=== PATIENT | male | born 1960 | race Caucasian/White ===

== ENCOUNTER → 2023-01-09 | Outpatient (CLI) | payer BC ==
--- NOTE | 2023-01-10 18:30 | CT ---
EXAMINATION TYPE: CT pelvis wo con DATE OF EXAM: 01/09/2023 COMPARISON: INDICATION: Scrotal swelling x 2 months DLP: 246.0 mGycm, Automated exposure control for dose reduction was used. CONTRAST: 0 mL of Isovue 300. Study performed with Oral Contrast TECHNIQUE: Axial images were obtained from above the iliac crest to the pubic rami in the axial plane at 5 mm thick sections. Reconstructed images are reviewed on the computer in the coronal plane. FINDINGS: CT PELVIS: Loops of bowel within the abdomen and pelvis are normal. There are loops of bowel which are incom pletely distended or lack oral contrast limiting their evaluation. Fecal debris is within the colon. Appendix: Normal as visualized. Urinary bladder: Normal. Genitourinary structures: Prostate is prominent. Osseous structures: No suspicious lytic or sclerotic lesions. No free fluid is within the pelvis. Right inguinal region and proximal scrotal sac has a large right hydrocele. IMPRESSION: 1. Large right hydrocele. 2. Mild diverticulosis without acute diverticulitis.
== END | disposition home or self-care (01) ==
LOC: RADCTMAIN 14:42
PROVIDERS: ATTEND Urology
DX: N50.89 Other specified disorders of the male genital organs (principal); N43.3 Hydrocele, unspecified; K57.30 Diverticulosis of large intestine without perforation or abscess without bleeding
CPT/HCPCS: 72192

== ENCOUNTER → 2023-11-06 | Outpatient (CLI) | payer BC ==
--- NOTE | 2023-11-06 14:47 | CT ---
EXAMINATION TYPE: CT neck chest w con DATE OF EXAM: 11/06/2023 COMPARISON: None HISTORY: right neck swelling x4 weeks CT DLP: 679.2 mGycm CONTRAST: CT scan of the neck is performed with IV Contrast, patient injected with 100 mL of Isovue 300. Contrast enhanced CT of the neck was performed from the skull base through the lung apices. AIRWAY: The supraglottic, glottic, and subglottic portions of the airway appear patent and free of mass. SALIVARY GLANDS: There is enlargement of the right submandibular gland relative to its left-sided cou nterpart. The right submandibular gland measures 3.3 x 2.5 cm versus 3.3 x 1.7 cm. Distinct lesion is not appreciated with certainty. The parotid glands appear symmetric and free of distinct lesion. THYROID GLAND: No nodules or masses seen. LYMPH NODES: No adenopathy seen greater than 1cm. LUNG APICES: No nodule or mass is seen. OTHER: Vascular structures are patent. No significant degenerative change of the cervical spine. N o abscess seen. IMPRESSION: 1. Enlargement of the right submandibular gland without definite inflammatory change. Central calcifi cation noted compatible with sialolithiasis measuring 4 mm. EXAMINATION TYPE: CT neck chest w con DATE OF EXAM: 11/06/2023 COMPARISON: None HISTORY: right neck swelling x4 weeks CT DLP: 679.2 mGycm Automated exposure control for dose reduction was used. CONTRAST: CT scan of the chest is performed with IV Contrast, patient injected with 100 mL of Isovue 300. FINDINGS: LUNGS: The lungs are grossly clear, there is no concerning parenchymal mass or nodule identified. T here is no pleural effusion or pneumothorax seen. The tracheobronchial tree is patent. MEDIASTINUM: There are no greater than 1 cm hilar or mediastinal lymph nodes. No pericardial effusi on is seen. Thoracic aorta is of normal caliber. The heart is not enlarged. 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 Additional partially imaged smaller lesion at the level of the gallbladder anteriorly. Dedicated CT of the liver is recommended utilizin g hemangioma protocol. OTHER: No additional significant abnormality is seen. IMPRESSION: 1 ascending thoracic aortic aneurysm of 4.2 cm AP dimension. Descending thoracic aorta is of normal c aliber. 2. 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 Additional partially imaged smaller lesion at th e level of the gallbladder anteriorly. Dedicated CT of the liver is recommended utilizing hemangioma protocol.
== END | disposition home or self-care (01) ==
LOC: RADCTMAIN 12:20
PROVIDERS: ATTEND Internal Medicine
DX: I71.21 Aneurysm of the ascending aorta, without rupture (principal); R16.0 Hepatomegaly, not elsewhere classified; R22.1 Localized swelling, mass and lump, neck
CPT/HCPCS: 70491; 71260; Q9967